=== PATIENT | female | born 1990 | race Two or more races ===

== ENCOUNTER → 2020-10-17 | Outpatient (CLI) | payer OTHER | END | disposition home or self-care (01) | LOC: OFIC 805 09:15 | PROVIDERS: ATTEND Otolaryngology | DX: H90.41 Sensorineural hearing loss, unilateral, right ear, with unrestricted hearing on the contralateral side (principal); H61.21 Impacted cerumen, right ear ==

== ENCOUNTER 2021-01-02 09:18 | Outpatient (CLI) | payer OTHER | END 2021-01-02 10:30 | disposition home or self-care (01) | LOC: OFIC 805 09:18 | PROVIDERS: ATTEND Otolaryngology Otology & Neurotology | DX: H60.8X2 Other otitis externa, left ear (principal); H61.21 Impacted cerumen, right ear ==

== ENCOUNTER 2022-04-30 09:52 | Day surgery (SDC) | payer OTHER | END 2022-04-30 16:50 | disposition home or self-care (01) | LOC: AMB-ENDOS 09:52 → CIR.AMB 15:00 → AMB-ENDOS 16:50 | PROVIDERS: ATTEND Colon & Rectal Surgery | DX: K64.4 Residual hemorrhoidal skin tags (principal); K62.5 Hemorrhage of anus and rectum ==

== ENCOUNTER 2025-07-14 08:52 | Inpatient (IN) | payer OTHER ==
[~2025-07-14] VITALS: Ht 157.5 cm; Wt 85.3 kg
[2025-07-28 00:57] VITALS: BP 138/70
[2025-07-28] MEDS ORDERED: AMPICILLIN SODIUM 2,000 MG VIAL IV STA (01:32)
[2025-07-28] MEDS ORDERED: PRENATA CHEWAB1 EACH PO (01:33)
[2025-07-28] MEDS ORDERED: RINGERS SOLUTION,LACTATED 1,000 ML IV SCH (01:45)
[2025-07-28 02:01] LABS: BASO % 0.3 % (0.1-1.2); EOS # 0.09 (0.04-0.54); EOS % 0.7 % (0.7-7.0); LYMPH # 4.45 (1.18-3.74); LYMPH % 32.5 % (19.3-53.1); MEAN PLATELET VOLUME 9.80 fl (9.4-12.4); MONO # 0.94 (0.24-0.82); MONO % 6.9 % (4.7-12.5); NEUT # 8.13 (1.56-6.13); NEUT % 59.3 % (34.0-71.1); RED CELL DISTRIBUTION WIDTH 14.8 % (11.6-14.4)
[2025-07-28 02:24] LABS: ALT/SGPT 17.0 U/L (12-78); AST/SGOT 14.0 U/L (15-37); BILIRUBIN TOTAL 0.23 mg/dL (0.3-1.2); BUN CREA RATIO 26.0 (7.0-25.0); CREATININE SERUM 0.42 mg/dL (0.55-1.02); GFR 170.71; GLOBULINA 3.7 G/DL (2.4-3.5); GLUCOSE FASTING 88.0 mg/dL (65-100); OSMOLALITY SERUM 278.0 MOSM/KG (275-295)
[2025-07-28 02:32] LABS: INR 0.95
[2025-07-28 03:10] VITALS: BP 140/80
[2025-07-28] MEDS ORDERED: AMPICILLIN SODIUM 1,000 MG VIAL IV SCH (05:00)
[2025-07-28 07:20] VITALS: BP 132/80
[2025-07-28] MEDS ORDERED: OXYTOCIN 500 ML IV ONE (08:30)
[2025-07-28 11:18] VITALS: BP 128/78
[2025-07-28 15:10] VITALS: BP 135/64
[2025-07-28] MEDS ORDERED: ERYTHROMYCIN BASE OPHT 1GM EACH TUBE OP ONE (19:40)
[2025-07-28] MEDS ORDERED: OXYTOCIN 10 UNITS/ML VIAL ONE ×2 (19:40→23:47)
[2025-07-28] MEDS ORDERED: AZITHROMYCIN 500 MG VIAL IV SCH (20:15)
[2025-07-28] MEDS ORDERED: OXYTOCIN 1,000 ML IV ONE (20:15)
[2025-07-28] MEDS ORDERED: AZITHROMYCIN 500 MG VIAL IV ONE (20:30)
[2025-07-28] MEDS ORDERED: AMPICILLIN SODIUM 1,000 MG VIAL ONE ×2 (22:12→23:48)
[2025-07-29] MEDS ORDERED: KETOROLAC TROMETHAMINE 30 MG VIAL IV SCH
[2025-07-29 00:40] VITALS: BP 117/70
[2025-07-29] MEDS ORDERED: GABAPENTIN 300 MG CAPSULE PO SCH (01:00)
[2025-07-29] MEDS ORDERED: ACETAMINOPHEN 500 MG GEL..CAP PO SCH (06:00)
[2025-07-29 07:48] LABS: BASO % 0.3 % (0.1-1.2); EOS # 0.04 (0.04-0.54); EOS % 0.3 % (0.7-7.0); LYMPH # 3.39 (1.18-3.74); LYMPH % 21.9 % (19.3-53.1); MEAN PLATELET VOLUME 10.30 fl (9.4-12.4); MONO # 0.97 (0.24-0.82); MONO % 6.3 % (4.7-12.5); NEUT # 10.99 (1.56-6.13); NEUT % 70.9 % (34.0-71.1); RED CELL DISTRIBUTION WIDTH 15.0 % (11.6-14.4)
[2025-07-29] MEDS ORDERED: DOCUSATE SODIUM 100MG CAP PO SCH (09:00)
[2025-07-29] MEDS ORDERED: SIMETHICONE 125 MG CAPSULE PO SCH (09:00)
[2025-07-29] MEDS ORDERED: PNV,CALCIUM 72/IRON/FOLIC ACID 1 TAB TABLET PO SCH (09:00)
[2025-07-29 10:36] VITALS: BP 128/76
[2025-07-29 16:00] VITALS: BP 128/78
[2025-07-30 00:33] VITALS: BP 128/72
[2025-07-30 10:12] VITALS: BP 142/82
[2025-07-30 16:27] VITALS: BP 126/82
[2025-07-31] VITALS: BP 134/84
[2025-07-31 08:22] VITALS: BP 134/80
[2025-07-31 13:11] LABS: BASO % 0.3 % (0.1-1.2); EOS # 0.12 (0.04-0.54); EOS % 1.0 % (0.7-7.0); LYMPH # 3.06 (1.18-3.74); LYMPH % 26.6 % (19.3-53.1); MEAN PLATELET VOLUME 9.70 fl (9.4-12.4); MONO # 0.47 (0.24-0.82); MONO % 4.1 % (4.7-12.5); NEUT # 7.77 (1.56-6.13); NEUT % 67.7 % (34.0-71.1); RED CELL DISTRIBUTION WIDTH 15.4 % (11.6-14.4)
[2025-07-31 13:47] LABS: ALT/SGPT 18.0 U/L (12-78); AST/SGOT 17.0 U/L (15-37); BILIRUBIN TOTAL 0.18 mg/dL (0.3-1.2); BUN CREA RATIO 24.0 (7.0-25.0); CREATININE SERUM 0.45 mg/dL (0.55-1.02); GFR 157.65; GLOBULINA 4.0 G/DL (2.4-3.5); GLUCOSE FASTING 93.0 mg/dL (65-100); OSMOLALITY SERUM 280.0 MOSM/KG (275-295)
[2025-07-31 16:08] VITALS: BP 150/80
[2025-07-31] MEDS ORDERED: CITRIC ACID/SODIUM CITRATE 30 ML BLIST.PACK PO ONE (20:15)
[2025-08-01 00:10] VITALS: BP 140/79
[2025-08-01 08:07] VITALS: BP 145/77
== END 2025-08-01 17:34 | disposition home or self-care (01) | DRG 786 ==
LOC: OB/GYN → LDR 07-28 01:29 → OB/GYN 07-28 10:54
PROVIDERS: Obstetrics & Gynecology; Obstetrics & Gynecology Gynecology; ADMIT Obstetrics & Gynecology; ATTEND Obstetrics & Gynecology
PROC: 4A1HXCZ Monitoring of Products of Conception, Cardiac Rate, External Approach (ICD-10-PCS; 2025-07-28)
PROC: 3E033VJ Introduction of Other Hormone into Peripheral Vein, Percutaneous Approach (ICD-10-PCS; 2025-07-28)
PROC: 10D00Z1 Extraction of Products of Conception, Low, Open Approach (ICD-10-PCS; principal; 2025-07-28 22:45)
DX: O61.0 Failed medical induction of labor (principal); O60.14X0 Preterm labor third trimester with preterm delivery third trimester, not applicable or unspecified; Z3A.35 35 weeks gestation of pregnancy; Z37.0 Single live birth

== ENCOUNTER 2025-07-14 12:47 | Outpatient (CLI) | payer OTHER | END 2025-07-14 13:33 | disposition home or self-care (01) | LOC: NST 12:47 | PROVIDERS: ATTEND Obstetrics & Gynecology Gynecology | DX: Z34.83 Encounter for supervision of other normal pregnancy, third trimester (principal) ==

== ENCOUNTER 2025-07-25 09:37 | Outpatient (CLI) | payer OTHER | END 2025-07-25 10:39 | disposition home or self-care (01) | LOC: NST 09:37 | PROVIDERS: ATTEND Obstetrics & Gynecology Gynecology | DX: Z34.83 Encounter for supervision of other normal pregnancy, third trimester (principal) ==

== ENCOUNTER 2025-08-03 10:31 | Inpatient (IN) | payer OTHER ==
[~2025-08-03] VITALS: Ht 157.5 cm; Wt 84.8 kg
[~2025-08-03 10:31] MED LIST: PRENATA CHEWAB1 EACH PO
[2025-08-03] MEDS ORDERED: LABETALOL HCL 100 MG TABLET PO ONE (10:33)
[2025-08-03] MEDS ORDERED: MAGNESIUM SULFATE IN WATER 4 GM/100 ML PIGGYBACK IV ONE (10:33)
[2025-08-03] MEDS ORDERED: MAGNESIUM SULFATE IN WATER 0.04 GM/ML IV.SOLN IV ONE (10:33)
[2025-08-03] MEDS ORDERED: FAMOTIDINE/PF 20 MG/2 ML VIAL ONE (10:34)
[2025-08-03 10:50] VITALS: BP 15/84; BP 158/84; O2SAT 98
[2025-08-03] MEDS ORDERED: MAGNESIUM SULFATE IN WATER 100 ML IV STA (11:17)
[2025-08-03] MEDS ORDERED: MAGNESIUM SULFATE IN WATER 500 ML IV SCH (11:30)
[2025-08-03] MEDS ORDERED: FAMOTIDINE/PF 20 MG/2 ML VIAL IV SCH (11:30)
[2025-08-03] MEDS ORDERED: LABETALOL HCL 100 MG TABLET PO SCH (11:30)
[2025-08-03] MEDS ORDERED: RINGERS SOLUTION,LACTATED 1,000 ML IV SCH (11:30)
[2025-08-03 12:11] LABS: BASO % 0.4 % (0.1-1.2); EOS # 0.12 (0.04-0.54); EOS % 1.5 % (0.7-7.0); LYMPH # 2.35 (1.18-3.74); LYMPH % 29.3 % (19.3-53.1); MEAN PLATELET VOLUME 9.60 fl (9.4-12.4); MONO # 0.50 (0.24-0.82); MONO % 6.2 % (4.7-12.5); NEUT # 4.99 (1.56-6.13); NEUT % 62.4 % (34.0-71.1); RED CELL DISTRIBUTION WIDTH 14.7 % (11.6-14.4)
[2025-08-03 12:24] LABS: URINE APPEARANCE Clear; URINE BILIRRUBIN Negative (NEGATIVE); URINE BLOOD Trace; URINE COLOR Yellow; URINE GLUCOSE Negative (NEGATIVE); URINE KETONE Negative (NEGATIVE); URINE LEUKOCYTE Negative; URINE NITRATE Negative; URINE PROTEIN Negative (NEGATIVE); URINE UROBILINOGEN 0.2 E.U./dl
[2025-08-03 12:28] LABS: URINE BACTERIA 15.6 uL (0.0-1933); URINE WBC 1.9 uL (0.0-23.2)
[2025-08-03 12:44] LABS: ALT/SGPT 37.0 U/L (12-78); AST/SGOT 22.0 U/L (15-37); BILIRUBIN TOTAL 0.42 mg/dL (0.3-1.2); BUN CREA RATIO 29.0 (7.0-25.0); CREATININE SERUM 0.52 mg/dL (0.55-1.02); GFR 133.43; GLOBULINA 4.0 G/DL (2.4-3.5); GLUCOSE FASTING 79.0 mg/dL (65-100); LDH 189.0 U/L (84-246); OSMOLALITY SERUM 285.0 MOSM/KG (275-295)
[2025-08-03 13:45] LABS: URINE CAST 0.00 uL (0.0-1.40); URINE EPITHELIAL CELLS 0.9 uL (0.0-38.8); URINE RBC 1.6 uL (0.0-20.8)
[2025-08-03] MEDS ORDERED: ACETAMINOPHEN 500 MG GEL..CAP PO PRN (14:45)
[2025-08-03 15:26] VITALS: BP 157/90
[2025-08-03 20:05] VITALS: BP 146/83
[2025-08-03 23:27] VITALS: BP 146/88
[2025-08-04 03:27] VITALS: BP 155/89
[2025-08-04 06:31] VITALS: BP 145/73; O2SAT 99
[2025-08-04 11:07] VITALS: BP 144/85
[2025-08-04] MEDS ORDERED: LABETALOL HCL 100 MG TABLET PO ONE (11:30)
[2025-08-04 12:01] LABS: BASO % 0.3 % (0.1-1.2); EOS # 0.11 (0.04-0.54); EOS % 1.2 % (0.7-7.0); LYMPH # 2.13 (1.18-3.74); LYMPH % 23.9 % (19.3-53.1); MEAN PLATELET VOLUME 9.20 fl (9.4-12.4); MONO # 0.53 (0.24-0.82); MONO % 5.9 % (4.7-12.5); NEUT # 6.07 (1.56-6.13); NEUT % 68.3 % (34.0-71.1); RED CELL DISTRIBUTION WIDTH 14.8 % (11.6-14.4)
[2025-08-04 12:50] LABS: ALT/SGPT 43.0 U/L (12-78); AST/SGOT 27.0 U/L (15-37); BILIRUBIN TOTAL 0.28 mg/dL (0.3-1.2); BUN CREA RATIO 25.0 (7.0-25.0); CREATININE SERUM 0.57 mg/dL (0.55-1.02); GFR 120.01; GLOBULINA 4.2 G/DL (2.4-3.5); GLUCOSE FASTING 96.0 mg/dL (65-100); OSMOLALITY SERUM 283.0 MOSM/KG (275-295)
[2025-08-04] MEDS ORDERED: LABETALOL HCL 200 MG TABLET PO SCH (12:52)
[2025-08-04 15:06] VITALS: BP 155/80
[2025-08-04 19:30] VITALS: BP 152/83
[2025-08-04] MEDS ORDERED: LABETALOL HCL 100 MG TABLET PO SCH (21:00)
[2025-08-04 23:20] VITALS: BP 152/84
[2025-08-05] VITALS (7 sets, daily range): BP systolic 136–164; BP diastolic 73–94
[2025-08-05] MEDS ORDERED: LABETALOL HCL 300 MG TABLET PO SCH ×2 (11:09→17:00)
[2025-08-05] MEDS ORDERED: LABETALOL HCL 100 MG TABLET PO ONE (11:30)
[2025-08-05] MEDS ORDERED: NIFEDIPINE 30 MG TAB.SA.OSM PO SCH (17:54)
[2025-08-05] MEDS ORDERED: NIFEDIPINE 10 MG CAPSULE PO ONE (18:09)
[2025-08-05] MEDS ORDERED: NIFEDIPINE 20 MG CAPSULE PO ONE (18:09)
[2025-08-06 03:57] VITALS: BP 112/53
[2025-08-06 07:09] VITALS: BP 144/85
[2025-08-06 11:01] VITALS: BP 119/79
== END 2025-08-06 12:53 | disposition home or self-care (01) | DRG 776 ==
LOC: LDR 10:31
PROVIDERS: ADMIT Obstetrics & Gynecology Gynecology; ATTEND Obstetrics & Gynecology Gynecology
DX: O14.05 Mild to moderate pre-eclampsia, complicating the puerperium (principal)